=== PATIENT | female | born 1950 | race Caucasian/White ===

== ENCOUNTER 2020-05-06 17:55 | Outpatient (CLI) | payer MEDICARE, SELFPAY ==
--- NOTE | ~2020-05-06 | XR_ITS ---
EXAMINATION: XR heel RT min 2V INDICATION: Right foot pain TECHNIQUE: Two views of the right calcaneus are obtained. COMPARISON: None available FINDINGS: Bone alignment is normal. There is no fracture. The joint spaces are normal. A dorsal calca barry enthesophyte is noted. The soft tissues are unremarkable. IMPRESSION: 1. No acute osseous abnormality. Reviewed, dictated and finalized at location A.
== END 2020-05-06 17:56 | disposition home or self-care (01) ==
PROVIDERS: PCP Internal Medicine; Visit Provider Internal Medicine
DX: M79.671 Pain in right foot (principal)
CPT/HCPCS: 73650

== ENCOUNTER 2021-01-16 09:48 | Outpatient (CLI) | payer BC, SELFPAY ==
--- NOTE | ~2021-01-16 | MM_ITS ---
EXAMINATION: MM screening roxanne BI w leo HISTORY: Screening TECHNIQUE: Craniocaudal and mediolateral oblique 3-D tomosynthesis images were obtained and synthetic 2-D images were generated. CAD analysis was submitted and interpreted. COMPARISON: No prior mammogram is available for comparison at this institution. BREAST PARENCHYMAL COMPOSITION: There are scattered areas of fibroglandular density. FINDINGS: There is no evidence of suspicious mass, calcification, or architectural distortion to sugg est malignancy in either breast. There has been no suspicious interval change. IMPRESSION: 1. No mammographic evidence of malignancy. 2. Recommend routine screening mammography in one year. BI-RADS Category 1: Negative Reviewed, dictated and finalized at location A.
--- NOTE | ~2021-01-16 | DEXA_ITS ---
Bone Density Report Name: Priscila Chua Age: 70 Sex: Female Ethnicity: White Date of : 1950 Indication: postmenopausal; height loss; asthma or emphysema; Referring Provider: Ro Dodge Study: Bone densitometry was performed. Exam Date: January 16, 2021 Accession number: [id number] Bone Density: Region BMD T-score Z-score Classification AP Spine (L1-L4) 0.818 -2.1 -0.1 Osteopenia Femoral Neck (Left) 0.682 -1.5 0.2 Osteopenia Total Hip (Left) 0.797 -1.2 0.2 Osteopenia Total Hip Bilateral Avg 0.799 -1.2 0.3 Osteopenia Femoral Neck (Right) 0.649 -1.8 -0.1 Osteopenia Total Hip (Right) 0.799 -1.2 0.3 Osteopenia World Health Organization criteria for BMD impression classify patients as: Normal (T-score at or above -1.0), Osteopenia (T-score between -1.0 and -2.5), or Osteoporosis (T-score at or below -2.5). 10-year Fracture Risk(1): Major Osteoporotic Fracture 9.8% Hip Fracture 1.6% Reported Risk Factors: [place] (), Neck BMD=0.649, BMI=22.6 (1) FRAX(R) Version 3.08. Fracture probability calculated for an untreated patient. Fracture probability may be lower if the patient has received treatment. Clinical Information Provided by Patient: Has used the following medications: Vitamin D, Calcium Has the following medical conditions: Asthma or Emphysema Patient maximum height was 59.5 Menopause Age: 56 Drinks caffeinated beverages Onset of menses at age 16 Number of children 1 Impression: The patient has low bone mass, based on the Total Spine T-score. The patient has an estimated ten-year risk of hip fracture of 1.6% and an estimated ten-year risk of major fracture of 9.8%, based on the WHO FRAX algorithm. Discussion: BONE DENSITY IS LOW AT ONE OR MORE SKELETAL SITES. This patient's lowest T-score is low at one or more skeletal sites. It meets the World Health Organization's (WHO) criteria for ?low bone mass? (T-score between -1.0 and -2.5). The patient's 10-year risk of fracture as calculated by FRAX is less than the threshold where pharmacological therapy is recommended by the National Osteoporosis Foundation (NOF). However, all treatment decisions require clinical judgment and consideration of individual patient factors, including patient preferences, comorbidities, previous drug use, risk factors not captured in the FRAX model (e.g., frailty, falls, vitamin D deficiency, increased bone turnover, interval significant decline in bone density) and possible under or overestimation of fracture risk by FRAX. The patient should follow a healthful lifestyle (good nutrition with adequate calcium and vitamin D, and appropriate weight-bearing exercise). Follow-Up: Consider repeating this study in 2 to 3 years to reassess this patient's status, or sooner if there is some new clinical indication.
== END 2021-01-16 09:49 | disposition home or self-care (01) ==
LOC: ANHIMG 09:50
PROVIDERS: PCP Internal Medicine; Visit Provider Nurse Practitioner
DX: Z12.31 Encounter for screening mammogram for malignant neoplasm of breast (principal); Z78.0 Asymptomatic menopausal state; M85.88 Other specified disorders of bone density and structure, other site; M85.852 Other specified disorders of bone density and structure, left thigh; M85.851 Other specified disorders of bone density and structure, right thigh
CPT/HCPCS: 77063; 77067; 77080

== ENCOUNTER 2021-02-09 00:05 | Day surgery (SDC) | payer BC, SELFPAY ==
[2021-01-20 08:42] VITALS: BMI 21.9
[2021-02-09] MEDS: LACTATED RINGERS 1,000 ML 150 ML IV CONT (06:31)
[2021-02-09 06:33] VITALS: BP 126/70; PULSE 70; RESP 16; TEMP 36.1; O2SAT 97; BMI 21.2
--- NOTE | 2021-02-09 07:16 | WPDANESEPPF ---
Anes - Initial Pre Proc Eval Procedure: Operation Date: 02/09/21 07:30 Proposed Procedures p Screening Colonoscopy - Eron Zapata MD Date/Time: 02/09/21 07:16 Surgeon: Eron Zapata MD Pre Op Diagnosis: neoplasm screening Patient Data Age: 70 Gender: F Height: 1.5 m Weight: 47.8 kg Last Vital Signs Temp 97.0 F L 02/09/21 06:33 Pulse 70 02/09/21 06:33 Resp 16 02/09/21 06:33 BP 126/70 02/09/21 06:33 Pulse Ox 97 02/09/21 06:33 Allergies Allergy/AdvReac Type Severity Reaction Status Date / Time milk Allergy Unknown Unknown Verified 02/09/21 06:20 Home Medications Medication Instructions Recorded Confirmed Type montelukast 10 mg tablet 10 mg PO DAILY #30 tablet 11/20/20 02/09/21 Rx albuterol sulfate 90 mcg/actuation 1 puff INHALATION Q4H PRN 12/10/20 02/09/21 History aerosol inhaler Patient hx anesthesia problems: none Family hx anesthesia problems: none PMFSH Past Medical History Medical History (Updated 12/10/20 @ 09:57 by Ro Dodge NP) Asthma Hepatitis C virus infection resolved after antiviral drug therapy Surgical History Surgical History (Updated 12/10/20 @ 09:21 by Cynthia Woodard CMA) History of cholecystectomy Hx of appendectomy Family History Family History (Updated 12/10/20 @ 09:10 by Cynthia Woodard CMA) Mother Hypertension Family history of elevated blood lipids Father Cancer Mother Cancer Hypertension Heart disease Thyroid disease Sibling Cancer Grandparent Cancer Heart disease Social History Social History (Updated 12/10/20 @ 09:11 by Cynthia Woodard CMA) Smoking packs per day: 0.5 Smoking cigarettes per day: 10.0 Years smoked: 8 Smoking pack-years: 4.00 Smoking status: Former smoker Smoking end date: 08/15/89 Alcohol intake: current Drinks per week: 3 Living arrangements: with family Spiritual care concerns: No Anes - Eval Final PreProcedure Day of Procedure 02/09/21 07:16 Patient weight: normal Heart: regular rate and rhythm Lungs: clear to auscultation Airway: Mallampati scale class II Neurological: alert and oriented Last oral intake: >/= 8 hours ASA classification: II Emergent: no Anesthetic plan: proceed Anesthesia type and monitoring: general GIVS and standard monitoring Informed Consent: The patient's anesthetic plan and its attendant risks and benefits were discussed with the patient/family/POA. Questions were solicited and answers provided to the satisfaction of the patient/family/POA.
--- NOTE | 2021-02-09 07:23 | PM.HPGS ---
History of Present Illness History of Present Illness Consent: Risks, benefits, and alternatives have been discussed and questions answered. Patient agrees to proceed with procedure. Chief complaint: neoplasm screening Narrative: Priscila Chua is a 70 year old female here for screening colonoscopy, last one more than 10 years ago. Review of Systems Constitutional: Constitutional: Denies headache(s) and Denies weakness Eyes: Eyes: Denies blurry vision ENT: Reports Normal hearing present, Denies headache(s) and Denies neck pain Cardiovascular: Cardiovascular: Denies chest pain and Denies dyspnea Respiratory: Respiratory: Denies dyspnea Gastrointestinal: Gastrointestinal: Reports no additional gastrointestinal complaints Genitourinary: Genitourinary: Denies dysuria Musculoskeletal: Musculoskeletal: Denies neck pain Integumentary/Breasts: Skin/Breast: Denies dry skin Neurologic: Reports Normal hearing present, Denies headache(s) and Denies weakness Psychiatric: Psychiatric: Denies anxiety Endocrine: Endocrine: Denies change in body appearance Hematologic/Lymphatic: Hematologic/Lymphatic: Denies easy bleeding Allergic/Immunologic: Allergic/Immunologic: Denies urticaria PMFSH Past Medical History Medical History (Updated 12/10/20 @ 09:57 by Ro Dodge NP) Asthma Hepatitis C virus infection resolved after antiviral drug therapy Surgical History Surgical History (Updated 12/10/20 @ 09:21 by Cynthia Woodard CMA) History of cholecystectomy Hx of appendectomy Family History Family History (Updated 12/10/20 @ 09:10 by Cynthia Woodard CMA) Mother Hypertension Family history of elevated blood lipids Father Cancer Mother Cancer Hypertension Heart disease Thyroid disease Sibling Cancer Grandparent Cancer Heart disease Social History Social History (Updated 12/10/20 @ 09:11 by Cynthia Woodard CMA) Smoking packs per day: 0.5 Smoking cigarettes per day: 10.0 Years smoked: 8 Smoking pack-years: 4.00 Smoking status: Former smoker Smoking end date: 08/15/89 Alcohol intake: current Drinks per week: 3 Living arrangements: with family Spiritual care concerns: No Meds Home Medications and Allergies Home Medications Medication Instructions Recorded Confirmed Type montelukast 10 mg tablet 10 mg PO DAILY #30 tablet 11/20/20 02/09/21 Rx albuterol sulfate 90 mcg/actuation 1 puff INHALATION Q4H PRN 12/10/20 02/09/21 History aerosol inhaler Allergies Allergy/AdvReac Type Severity Reaction Status Date / Time milk Allergy Unknown Unknown Verified 02/09/21 06:20 Vital Signs Vital Signs - 24 hr 02/09/21 06:33 Temperature 97.0 F L Pulse Rate 70 Respiratory Rate 16 Blood Pressure 126/70 Pulse Oximetry 97 Exam Const: General: comfortable and no acute distress HENMT: General nose exam: Normal nares present Eyes: General: appearance normal, both eyes and all related structures Neck: Neck: no JVD Resp: Auscultation: clear to auscultation bilaterally Cardio: Rate: regular rate Rhythm: regular rhythm GI: Inspection: non-distended GI Palp: Yes Soft to palpation Skin: General skin exam: normal color Neuro: General: gait normal Speech: normal speech Extrem: General: normal to inspection Psych: Mental Status: mental status grossly normal Assessment and Plan Assessment and plan (1) Screening for colon cancer: Code(s): Z12.11 - Encounter for screening for malignant neoplasm of colon Status: Acute Assessment and Plan: colonoscopy
[2021-02-09 07:44] VITALS: BP 96/60; PULSE 79; RESP 16; O2SAT 99
[2021-02-09 07:54] VITALS: BP 118/70; PULSE 79; RESP 16; O2SAT 99
[2021-02-09 08:04] VITALS: BP 123/73; PULSE 73; RESP 16; O2SAT 99
== END 2021-02-09 08:15 | disposition home or self-care (01) ==
PROVIDERS: PCP Internal Medicine; Visit Provider Internal Medicine Gastroenterology
PROC: 0DJD8ZZ Inspection of Lower Intestinal Tract, Via Natural or Artificial Opening Endoscopic (ICD-10-PCS; CPT 45378; principal; 2021-02-09 07:30)
DX: Z12.11 Encounter for screening for malignant neoplasm of colon (principal); K57.30 Diverticulosis of large intestine without perforation or abscess without bleeding; J45.909 Unspecified asthma, uncomplicated; Z86.19 Personal history of other infectious and parasitic diseases; Z87.891 Personal history of nicotine dependence; Z79.4 Long term (current) use of insulin
CPT/HCPCS: 45378; J2704; J7120

== ENCOUNTER → 2021-05-02 10:27 | Outpatient (CLI) | payer BC, SELFPAY ==
--- NOTE | ~2021-05-02 | XR_ITS ---
XR foot LT min 3V DATE: 05/02/2021 11:25 INDICATION: Left foot pain TECHNIQUE: 4 views COMPARISON: None FINDINGS: There is moderate osteopenia. There is mild plantar and posterior calcaneal enthesopathy. There is mild osteoarthritic change at the first metatarsophalangeal joint and interphalangeal joints . No fracture, dislocation, periosteal reaction or bone destruction is detected. 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
== END ==
PROVIDERS: PCP Nurse Practitioner; Visit Provider Nurse Practitioner
DX: M19.072 Primary osteoarthritis, left ankle and foot (principal)
CPT/HCPCS: 73630

== ENCOUNTER → 2023-02-03 10:53 | Outpatient (CLI) | payer BC, SELFPAY ==
--- NOTE | ~2023-02-03 | US_ITS ---
EXAMINATION:US venous doppler LE INDICATION:Calf pain. TECHNIQUE: Multiple grayscale, color flow and Doppler images of the left lower extremity deep venous systems were obtained and reviewed. COMPARISON:No prior studies for comparison. Near area palpable concern in the left calf there is an o karthikeyan circumscribed wider than tall hyperechoic mass measuring 5.7 x 4.6 x 2.3 cm which may represent a typical lymph node or lipoma. No internal vascularity or posterior features. FINDINGS: The common femoral, superficial femoral and popliteal veins demonstrate normal respiratory variation, augmentation and compressibility. Color flow is also seen within the posterior tibial, pe roneal, greater saphenous and profunda veins. IMPRESSION: 1: No lower extremity deep venous thrombosis. 2: Abnormal 5.7 cm mass in the left calf which may represent atypical lymph node or lipoma. Consider percutaneous biopsy as clinically warranted. Reviewed, dictated and finalized at [facility]. IMPRESSION: 1: No lower extremity deep venous thrombosis. 2: Abnormal 5.7 cm mass in the left calf which may represent atypical lymph no de or lipoma. Consider percutaneous biopsy as clinically warranted.
== END ==
PROVIDERS: PCP Nurse Practitioner; Visit Provider Nurse Practitioner
DX: M79.89 Other specified soft tissue disorders (principal)
CPT/HCPCS: 93971

== ENCOUNTER 2023-04-12 12:57 | Outpatient (CLI) | payer BC, SELFPAY ==
--- NOTE | ~2023-04-12 | MR_ITS ---
EXAMINATION: MR lower leg LT wo/w con DATE: 04/12/2023 13:46 INDICATION: Left calf mass and pain with bending the knee. TECHNIQUE: Magnetic resonance imaging (MRI) of the left lower leg was performed without and with 9 mL Multihance intravenous contrast. A marker was placed over the mass. Sequences included axial, sagit randy and coronal T1-weighted FSE and fluid sensitive FSE STIR, axial T1-weighted FS FSE and post contr ast axial, sagittal and coronal T1-weighted FS FSE were also obtained. The contralateral right lower leg is included on the coronal images. COMPARISON: None. FINDINGS: Immediately underlying the marker indicating the mass of concern is a new ovoid 5.6 x 4.5 x 2.4 cm T1 hyperintense fat saturating intramuscular lipoma within the proximal medial head of the gastrocnemiu s muscle no solid nodular enhancing soft tissue component to suggest aggressive lipoma or liposarcoma . No other abnormal masses or abnormally enhancing lesions identified. Partial-thickness cartilage lo ss at the patellofemoral compartment of the left knee with subarticular edema-like signal change at t he patellar apical ridge and adjacent lateral facet suggesting overlying high-grade chondromalacia. T here is otherwise normal bone marrow signal throughout. Remaining joint appear normal. No knee or ank le joint effusions. Remaining musculature of the bilateral calves appears normal and symmetric. IMPRESSION: 1. 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 Reviewed, dictated and finalized at location A.
== END 2023-04-12 12:58 ==
PROVIDERS: PCP Nurse Practitioner; Visit Provider Surgery
DX: M79.662 Pain in left lower leg (principal)
CPT/HCPCS: 73720; A9577

== ENCOUNTER 2023-04-28 08:30 | Outpatient (CLI) | payer BC, SELFPAY ==
--- NOTE | ~2023-04-28 | MM_ITS ---
EXAMINATION: MM screening roxanne BI w leo HISTORY: Screening mammogram, family history of breast cancer in her mother. TECHNIQUE: Craniocaudal and mediolateral oblique 3-D tomosynthesis images were obtained and synthetic 2-D images were generated. CAD analysis was submitted and interpreted. COMPARISON: 01/16/2021 BREAST PARENCHYMAL COMPOSITION:There are scattered areas of fibroglandular density. FINDINGS: No suspicious mass, calcification, or architectural distortion are identified in either naresh ast to suggest malignancy. There has been no suspicious interval change. IMPRESSION: No mammographic evidence of malignancy. Recommend routine screening mammography in one year. BI-RADS Category 1: Negative Reviewed, dictated and finalized at location M.
== END 2023-04-28 08:31 | disposition home or self-care (01) ==
PROVIDERS: PCP Nurse Practitioner; Visit Provider Nurse Practitioner
DX: Z12.31 Encounter for screening mammogram for malignant neoplasm of breast (principal)
CPT/HCPCS: 77063; 77067

== ENCOUNTER 2023-06-20 01:27 | Day surgery (SDC) | payer MEDICARE, SELFPAY ==
[2023-06-15 11:33] VITALS: BMI 21.6
--- NOTE | 2023-06-15 11:42 | PC.NURSE ---
Report to the Outpatient Waiting Room, entrance under the green pavilion located off [facility], at time __0600 on date __06/20/23 . Planned Procedure Time: ___30 . Time changes happen often and if your time is changed the preop area will call you the afternoon before. - You and your visitor will be asked to self-screen and do not enter if you have any COVID symptoms. - A mask is optional within the hospital at this time. Patients may have clear liquids (water, carbonated beverages, clear teas, apple juice) until 3 hours prior to surgery (0430 AM) with a maximum of 20 ounces. - No food from midnight until time of surgery - Infants may have breast milk until 4 hours before surgery, formula 6 hours prior to surgery. - Children will be allowed to drink immediately following surgery. If applicable, please bring a bottle or sippy cup to assist with drinking. Juice, water, soda, and popsicles are readily available. For infants on formula, please bring formula the day of surgery. Pacifiers are allowed. Take the following medications with a SIP of water the morning of surgery: ___INHALER DO NOT STOP ANY OF YOUR OTHER PRESCRIPTION MEDICATIONS PRIOR TO SURGERY ?EXCEPT THE FOLLOWING Medications to discontinue per physician MULTIVITAMIN Date to take last dose__06/16/23 Please no make-up, nail romansh, hairspray, perfume, deodorant, or body powder the day of surgery. No jewelry (including any body piercings) or valuables the day of surgery, leave them at home. Please take a shower or bath the night before, or the morning of, surgery with an antibacterial soap. Wear comfortable, loose fitting clothing. Children are encouraged to wear pajamas. - Jewelry must be removed prior to entering the operating room. Rings and piercings that are not removed may be cut off. - The hospital will not accept responsibility for valuables. - Please leave all valuables, including medications, at home the day of surgery. If you are going home after surgery, a licensed screw driver operator must drive you home. - NO public transportation without another adult if you receive anesthesia. - We recommend that an adult stay with you for 24 hours following discharge. - We also recommend that you do not drive, make important decision, drink alcoholic beverages, or take any drugs that were not prescribed by your health care provider for at least 24 hours after your discharge time. For Pediatric surgeries, we recommend two adults accompany the child home. Follow any additional instructions given to you from your surgeon. If you or anyone in your household have experienced Covid symptoms in the past week, please notify your surgeon or the nurse liaison at the phone number below for possible testing. Telephone instructions given to ___PT and asked if any additional questions and then verbalized understanding. Patient advised to call surgeon office or pre surgery nurse liaison [phone] if any additional questions.
[2023-06-20] VITALS (7 sets, daily range): BP systolic 132–151; BP diastolic 63–79; PULSE 66–110; RESP 12–18; TEMP 36.3–36.6; O2SAT 98–100
[2023-06-20] MEDS: LACTATED RINGERS 1,000 ML 30 ML IV CONT (06:35)
--- NOTE | 2023-06-20 06:55 | WPDANESEPPF ---
Anes - Initial Pre Proc Eval Procedure: Operation Date: 06/20/23 07:30 Proposed Procedures p Excision of Left Calf Intramuscular Mass - Thad Harry MD Date/Time: 06/20/23 06:55 Surgeon: Thad Harry MD Pre Op Diagnosis: Lt Calf Intramuscular Mass 5x5 cm Patient Data Age: 73 Gender: F Height: 1.5 m Weight: 48.63 kg Allergies Allergy/AdvReac Type Severity Reaction Status Date / Time milk Allergy Unknown Unknown Verified 06/20/23 06:54 oxycodone [From Percocet] Allergy Unknown Nausea Verified 06/20/23 06:54 Home Medications Medication Instructions Recorded Confirmed Type albuterol sulfate 90 mcg/actuation 1 puff inhalation Q4H PRN 12/11/21 06/20/23 Rx aerosol inhaler Shortness Of Breath #8.5 grams alendronate 70 mg tablet (Fosamax) 70 mg PO WEEKLY #12 tabs 02/21/23 06/20/23 Rx mometasone 100 mcg/actuation HFA 2 inh inhalation Q12H #3 multiple 02/21/23 06/20/23 Rx aerosol inhaler (Asmanex HFA) units multivitamin 1 tablet PO DAILY 06/15/23 06/20/23 History Patient hx anesthesia problems: none Family hx anesthesia problems: none Results Review: All pre-operative results and documents have been reviewed as part of the pre-operative evaluation. [facility] Past Medical History Medical History Asthma Hepatitis C virus infection resolved after antiviral drug therapy Osteopenia Surgical History Surgical History History of cholecystectomy Hx of appendectomy Family History Family History Mother Hypertension Family history of elevated blood lipids Father Cancer Mother Cancer Hypertension Heart disease Thyroid disease Sibling Cancer Grandparent Cancer Heart disease Social History Social History Smoking packs per day: 0.5 Smoking cigarettes per day: 10.0 Years smoked: 8 Smoking pack-years: 4.00 Smoking status: Former smoker Tobacco type: cigarettes Second hand tobacco smoke exposure: No Smoking end date: 08/15/89 Alcohol intake: current Drinks per week: 4 Substance use: never Substance use type: does not use Lack of Transportation: No Lack of Food: Never True Current Housing: I Have Housing Concerned About Future Housing: No Difficulty Paying Gas/Electric Bills: No Difficulty Paying for Meds: No Currently Unemployed: No Education: Associate Degree Difficulty w/ Childcare or Family Care: No Living arrangements: with family Spiritual care concerns: No Anes - Eval Final PreProcedure Day of Procedure 06/20/23 06:55 Patient weight: normal Heart: regular rate and rhythm Lungs: clear to auscultation Airway: Mallampati scale class II Neurological: alert and oriented Last oral intake: >/= 8 hours ASA classification: II Emergent: no Anesthetic plan: proceed Anesthesia type and monitoring: general ETT and standard monitoring Results Review: All pre-operative results and documents have been reviewed as part of the pre-operative evaluation. Informed Consent: The patient's anesthetic plan and its attendant risks and benefits were discussed with the patient/family/POA. Questions were solicited and answers provided to the satisfaction of the patient/family/POA.
--- NOTE | 2023-06-20 07:16 | PM.IMHP ---
H&P: HPI History of Present Illness Date/Time: 06/20/23 07:16 Chief Complaint: Left leg mass Narrative: Priscila returns for another recheck of a left lower leg mass and to review recent MRI results from 04/12/23. 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 She states she will occasionally have discomfort in her left calf with standing or walking. Review of Systems Review of Systems: The remainder of the review of systems to include constitutional, HEENT, cardiovascular, respiratory, GI, , integumentary, musculoskeletal, endocrine, immunologic, hematologic, psychiatric, and neurologic are all negative except for which is mentioned above in the HPI. [facility] Past Medical History Medical History Asthma Hepatitis C virus infection resolved after antiviral drug therapy Osteopenia Surgical History Surgical History History of cholecystectomy Hx of appendectomy Family History Family History Mother Hypertension Family history of elevated blood lipids Father Cancer Mother Cancer Hypertension Heart disease Thyroid disease Sibling Cancer Grandparent Cancer Heart disease Social History Social History Smoking packs per day: 0.5 Smoking cigarettes per day: 10.0 Years smoked: 8 Smoking pack-years: 4.00 Smoking status: Former smoker Tobacco type: cigarettes Second hand tobacco smoke exposure: No Smoking end date: 08/15/89 Alcohol intake: current Drinks per week: 4 Substance use: never Substance use type: does not use Lack of Transportation: No Lack of Food: Never True Current Housing: I Have Housing Concerned About Future Housing: No Difficulty Paying Gas/Electric Bills: No Difficulty Paying for Meds: No Currently Unemployed: No Education: Associate Degree Difficulty w/ Childcare or Family Care: No Living arrangements: with family Spiritual care concerns: No Meds Home Medications and Allergies Home Medications Medication Instructions Recorded Confirmed Type albuterol sulfate 90 mcg/actuation 1 puff inhalation Q4H PRN 12/11/21 06/20/23 Rx aerosol inhaler Shortness Of Breath #8.5 grams alendronate 70 mg tablet (Fosamax) 70 mg PO WEEKLY #12 tabs 02/21/23 06/20/23 Rx mometasone 100 mcg/actuation HFA 2 inh inhalation Q12H #3 multiple 02/21/23 06/20/23 Rx aerosol inhaler (Asmanex HFA) units multivitamin 1 tablet PO DAILY 06/15/23 06/20/23 History Allergies Allergy/AdvReac Type Severity Reaction Status Date / Time milk Allergy Unknown Unknown Verified 06/20/23 06:54 oxycodone [From Percocet] Allergy Unknown Nausea Verified 06/20/23 06:54 Vital Signs Vital Signs - 24 hr 06/20/23 06:10 Temperature 36.6 C Pulse Rate 66 Respiratory Rate 18 Blood Pressure 151/67 H Pulse Oximetry 99 Oxygen Delivery Room Air Exam Const: General: comfortable and no acute distress Eyes: General: appearance normal, both eyes and all related structures Sclera: sclerae normal Pupils: Equal, round and reactive pupils present Neck: Neck: supple and no JVD Resp: Effort & Inspection: normal respiratory effort Auscultation: clear to auscultation bilaterally Cardio: Rate: regular rate Rhythm: regular rhythm GI: GI Palp: Yes Soft to palpation, No Firmness to palpation present (GI), No Tenderness to palpation present (GI), No Guarding due to palpation present (GI) and No Hernia present Skin: General skin exam: normal color and no rashes or lesions noted Neuro: General: gait normal Speech: normal speech Motor exam (neuro): 5/5 motor strength present throughout Extrem: Other: 5 by 5 cm partially fixed mass mid portion of the posterior left calf. Mass bulges out with dorsiflex of left ara
--- NOTE | 2023-06-20 07:20 | WPDHPUPDATE1 ---
History and Physical Update Update Date/Time: 06/20/23 07:20 History and Physical has been reviewed, including an updated exam of the patient. There are NO changes in the patient's condition. Risks, benefits, and alternatives have been discussed and questions answered. Patient agrees to proceed with procedure.
[2023-06-20] MEDS: ceFAZolin 2 GM/D5W 50 ML 2 GM/50 ML BAG IVPB (07:35)
[2023-06-20] MEDS: LIDO 1%/EPINEPHRINE 1:100,000 50 ML VIAL 30 ML INFILTRATE (08:03)
[2023-06-20] MEDS: KETOROLAC 15 MG/ML VIAL (*BKC) IV PUSH (08:21)
--- NOTE | 2023-06-20 08:53 | P.OP_ITS ---
Procedure Note - Detailed Date of Procedure 06/20/23 Pre-op Diagnosis Lt Calf Intramuscular Mass 5x5 cm Post-op Diagnosis Same Procedure Performed Excision of left posterior calf intramuscular lipoma. Surgeon Thad Harry MD Se[employer] Hosier[employer] Knitter Sheela CLARK student Anesthesia General Indications Patient is a 73 year old female presented with a slowly enlarging mildly sore subcutaneous mass in the midportion of the posterior left calf. Workup with MRI showed this to be consistent with a intramuscular lipoma. She presents now for excision of the mass. Findings 5x5x2.5cm intramuscular lipomatous mass in the belly of the left calf muscle. Well-defined capsule. Description of Procedure After informed consent was obtained patient brought to the operating room she was placed under general endotracheal anesthesia on the gurney then turned into the prone position on the operating table. The area the left posterior calf was then prepped and draped usual sterile fashion. A time-out was then performed correctly identifying the patient as well as procedure to be performed. Site marking was verified she was given perioperative IV antibiotics. 1% lidocaine mixed with 0.5% Marcaine was then injected around the mass for local anesthetic effect. A longitudinal incision with a scalpel then made over the center portion of the mass and dissection carried down through the dermis skin with a scalpel. Electrocautery was then used to dissect down through subcutaneous tissues until I encountered the fascia to the left calf muscle. I then incised the fascia longitudinally with electrocautery to expose the underlying muscle fibers. The intramuscular lipomatous mass was identified and then I shelled out the mass with blunt finger and electrocautery dissection from the surrounding muscle fibers. A small amount of muscle which was densely adherent to the mass was sacrificed in resected. The mass had a well-defined capsule. Once I completely excised out the mass I measured it was 5x5x2.5cm. It was sent to pathology for examination. And irrigated the wound with sterile saline solution hemostasis was then achieved utilizing the cautery. The was then closed utilizing interrupted 2-0 Vicryl sutures to reapproximate the edges of the fascia. Subcutaneous tissues were then closed utilizing interrupted 3-0 Vicryl sutures. The skin edges then approximated utilizing a running subcuticular 4-0 Monocryl suture. The incision was then cleaned and then skin glue was applied. The patient tolerated the procedure well no complications. All sponges, needles, and instrument counts were correct at the end procedure. EBL was _5__cc. The patient was awakened and taken to recovery in stable and satisfactory condition. Implants None Estimated Blood Loss 5 Drains No Packing No Pathology Yes Complications No immediate complications Condition Stable Disposition PACU [facility] Billing Surgery - Charge Forward: Surgery Billing
== END 2023-06-20 10:25 | disposition home or self-care (01) ==
PROVIDERS: PCP Nurse Practitioner; Visit Provider Surgery
PROC: (CPT 27634; principal; 2023-06-20 07:30)
DX: D17.24 Benign lipomatous neoplasm of skin and subcutaneous tissue of left leg (principal); J45.909 Unspecified asthma, uncomplicated; M85.80 Other specified disorders of bone density and structure, unspecified site; Z80.9 Family history of malignant neoplasm, unspecified; Z87.891 Personal history of nicotine dependence; Z79.51 Long term (current) use of inhaled steroids
CPT/HCPCS: 27634; 88304; J0690; J1100; J1885; J2371; J2405; J2704; J3010; J7120

== ENCOUNTER 2024-09-17 09:47 | Outpatient (CLI) | payer BC, SELFPAY ==
--- OUTSIDE RECORDS SUMMARY | 2024-09-17 10:28 | XMS_ITS | Clinical Summary ---
Author Organization [facility] Address [address] [place] [address]. [place], [place] [id number] [place] [address] Care Team Providers Care Medical Education Coordinator Name Role Phone Kelsi Perkins PA-C Primary Care Provider [phone] Encounters Date Type Department Care Team Description 06/18/2024 Telephone [facility] Medical [facility] General Surgery - [address], [address] [place] [address] Choco Alberto MD Other from Last 3 Months Immunizations Name Administration Dates Next Due Influenza (Generic) 05/31/2018 PFIZER COVID-19 (ORIGINAL FO RMULATION, PURPLE CAP) mRNA, LNP-S, PF, 30 MCG/0.3 ML DOSE 07/01/2021 Social History Tobacco Use Types Packs/Day Years Used Date Smoking Tobacco: Never Assessed Comments Unknown Sex and Gender Information Value Date Recorded Sex Assigned at Not on file Legal Sex Female 7:45 PM CDT Gender Identity Not on file Sexual Orientation Not on file Plan of Treatment Health Maintenance Due Date Last Done Comments Colorectal Cancer Screening Colonoscopy (10 Years) 1952 Hepatitis C 1970 DTaP, Tdap and Td Vaccines ( 1 - Tdap) 1971 Mammogram Screening 1992 Zoster Vaccines (1 of 2) 2002 Annual Medicare Wellness Visit 2017 Dexa Scan (General) 2017 Pneumococcal Vaccine: 65+ Years (1 of 1 - PCV) 2017 COVID-19 Vaccine (4 - 2023-2 5 season) 2024 07/01/2021, 08/26/2020, 08/05/2020 Influenza Adult (#1) 2024 05/31/2018 PHQ-2 (Physician [place]) 08/15/2024 RSV Immunization or 60+ Years (1 - 1-dose 75+ series) 2027 Meningococcal B Vaccine Aged Out No l onger eligible based on patient's age to complete this topic Meningococcal Vaccine Aged Out No cj sera eligible based on patient's age to complete this topic RSV Immunizations Under 20 Months Aged Out No longer eligible b ased on patient's age to complete this topic Insurance [facility] Care Teams Medical Education Coordinator Relationship Specialty Start Date End Date Kelsi Perkins PA-C [id number] [facility] [address] [place] [address] PCP - General PHYSICIAN [employer] 04/04/23
[2024-09-17 12:24] LABS: Alanine Aminotransferase 31 U/L (6-35); Alkaline Phosphatase 70 U/L (38-126); Anion Gap 13 mmol/L (4-12); Aspartate Amino Transferase 45 U/L (14-36); Bilirubin,Total 0.7 mg/dL (0.2-1.3); Blood Urea Nitrogen 17 mg/dL (7-17); Calcium 10.3 mg/dL (8.4-10.2); Carbon Dioxide 29 mmol/L (22-30); Chloride 99 mmol/L (98-107); Cholesterol 260 mg/dL (0-200); Estimated Glomerular Filt Rate > 60; Glucose 99 mg/dL (65-110); HDL Direct 77 mg/dL; Potassium 4.6 mmol/L (3.4-5.0); Sodium 141 mmol/L (137-145); Triglycerides 136 mg/dL (<150)
[2024-09-17 12:35] LABS: LDL Cholesterol Direct 143 mg/dL
[2024-09-17 12:36] LABS: Basophils Percent Auto 0.2 % (0.2-1.2); Eosinophils Absolute Auto 0.2 K/mm3 (0-0.3); Eosinophils Percent Auto 2.6 % (0-4.4); Immature Granulocyte Absolute 0.01 K/mm3 (0.00-0.031); Immature Granulocyte Percent A 0.2 % (0-0.5); Lymphocytes Absolute Auto 2.19 K/mm3 (0.9-3.2); Lymphocytes Percent Auto 38.4 % (18.3-44.2); Mean Corpuscular HGB Conc 32.6 g/dl (32-36); Mean Corpuscular Hemoglobin 31.4 pg (26-34); Mean Corpuscular Volume 96.4 fl (80-100); Mean Platelet Volume 9.9 fl (7.4-10.4); Monocytes Absolute Auto 0.4 K/mm3 (0.1-0.6); Monocytes Percent Auto 7.7 % (2.6-8.5); Neutrophils Absolute Auto 2.9 K/mm3 (1.3-6.7); Neutrophils Percent Auto 50.9 % (45.5-73.1); Platelet Count Result 279 k/mm3 (150-375); Red Blood Count 4.77 M/mm3 (4.2-5.4); Red Cell Distribution Width 12.4 % (11.5-14.5); White Blood Count 5.7 K/mm3 (4.5-10.0)
== END 2024-09-17 09:48 | disposition home or self-care (01) ==
LOC: ANHGOSHLAB 09:48
PROVIDERS: PCP Internal Medicine; Visit Provider Nurse Practitioner
DX: Z00.00 Encounter for general adult medical examination without abnormal findings (principal); Z13.220 Encounter for screening for lipoid disorders; E55.9 Vitamin D deficiency, unspecified; Z13.29 Encounter for screening for other suspected endocrine disorder
CPT/HCPCS: 36415; 80053; 80061; 82306; 85025

== ENCOUNTER 2025-04-17 09:32 | Outpatient (CLI) | payer MEDICARE, SELFPAY ==
--- NOTE | ~2025-04-17 | MM_ITS ---
EXAMINATION: MM screening [facility] BI w leo HISTORY: Screening TECHNIQUE: Craniocaudal and mediolateral oblique 3-D tomosynthesis images were obtained and synthetic 2-D images were generated. CAD analysis was submitted and interpreted. COMPARISON: Mammograms from 04/28/2023 and 01/16/2021 BREAST PARENCHYMAL COMPOSITION: There are scattered areas of fibroglandular density. FINDINGS: There is no evidence of suspicious mass, calcification, or architectural distortion in either breast to suggest malignancy. There has been no significant interval change. IMPRESSION: 1. No mammographic evidence of malignancy. Recommend routine screening mammography in one year. BI-RADS Category 1: Negative Reviewed, dictated and finalized at location Q. IMPRESSION: 1. No mammographic evidence of malignancy. Recommend routine screening mammogra phy in one year. BI-RADS Category 1: Negative
== END 2025-04-17 09:33 | disposition home or self-care (01) ==
LOC: ANHFOHIMG 09:33
PROVIDERS: PCP Internal Medicine; Visit Provider Nurse Practitioner
DX: Z12.31 Encounter for screening mammogram for malignant neoplasm of breast (principal)
CPT/HCPCS: 77063; 77067

== ENCOUNTER 2025-05-06 13:26 | Outpatient (CLI) | payer BC, SELFPAY ==
--- NOTE | ~2025-05-06 | DEXA_ITS ---
Bone Density Report Name: CHANTE RICKS Age: 75 Sex: Female Ethnicity: White Date of : 1950 Indication: osteopenia; height loss; asthma or emphysema; Referring Provider: YOANA PERRY Study: Bone densitometry was performed. Exam Date: May 06, 2025 Accession number: [id number] Bone Density: Region BMD T-score Z-score Classification AP Spine(L1-L4) 0.800 -2.2 0.0 Osteopenia Femoral Neck (Left) 0.622 -2.0 -0.1 Osteopenia Total Hip (Left) 0.862 -0.7 1.0 Normal Femoral Neck (Right) 0.637 -1.9 0.1 Osteopenia Total Hip (Right) 0.834 -0.9 0.8 Normal Total Hip Mean 0.848 -0.8 0.9 Normal World Health Organization criteria for BMD impression classify patients as: Normal (T-score at or above -1.0), Osteopenia (T-score between -1.0 and -2.5), or Osteoporosis (T-score at or below -2.5). 10-year Fracture Risk(1): Major Osteoporotic Fracture 12% Hip Fracture 2.9% Reported Risk Factors: [place] (), Neck BMD=0.622, BMI=22.0 (1) FRAX(R) Version 3.08. Fracture probability calculated for an untreated patient. Fracture probability may be lower if the patient has received treatment. Previous Exams: Region Exam Age BMD T-score BMD Change BMD Change Date g/cm2 vs Baseline vs Previous AP Spine (L1-L4) 05/06/2025 75 0.800 -2.2 -0.018 (-2.1%) -0.018 (-2.1%) 01/16/2021 70 0.818 -2.1 Total Hip(Left) 05/06/2025 75 0.862 -0.7 0.066 (8.2%)* 0.066 (8.2%)* 01/16/2021 70 0.797 -1.2 Total Hip(Right) 05/06/2025 75 0.834 -0.9 0.035 (4.4%)* 0.035 (4.4%)* 01/16/2021 70 0.799 -1.2 *Denotes significance at 95% confidence level, LSC for AP Spine = 0.022 g/cm2, LSC for Total Hip = 0.027 g/cm2 Clinical Information Provided by Patient: Has used the following medications: Fosamax (i.e. alendronate), Vitamin D Has the following medical conditions: Asthma or Emphysema Patient maximum height was 60 Menopause Age: 56 Drinks caffeinated beverages Onset of menses at age 16 Number of children 1 Impression: The patient has low bone mass, based on the Total Spine T-score. The patient has an estimated ten-year risk of hip fracture of 2.9% and an estimated ten-year risk of major fracture of 12%, based on the WHO FRAX algorithm. No significant bone loss was observed. Discussion: BONE DENSITY IS LOW AT ONE OR MORE SKELETAL SITES. This patient's lowest T-score is low at one or more skeletal sites. It meets the World Health Organization's (WHO) criteria for ?low bone mass? (T-score between -1.0 and -2.5). The patient's 10-year risk of fracture as calculated by FRAX is less than the threshold where pharmacological therapy is recommended by the National Osteoporosis Foundation (NOF). However, all treatment decisions require clinical judgment and consideration of individual patient factors, including patient preferences, comorbidities, previous drug use, risk factors not captured in the FRAX model (e.g., frailty, falls, vitamin D deficiency, increased bone turnover, interval significant decline in bone density) and possible under or overestimation of fracture risk by FRAX. The patient should follow a healthful lifestyle (good nutrition with adequate calcium and vitamin D, and appropriate weight-bearing exercise). Follow-Up: Consider repeating this study in 2 to 3 years to reassess this patient's status, or sooner if there is some new clinical indication. Reported by: JELENA on 05/06/2025 2:14:00 PM. Reviewed, dictated and finalized at location A.
--- OUTSIDE RECORDS SUMMARY | 2025-05-06 13:54 | XMS_ITS | Clinical Summary ---
Author Organization [facility] Address [address] [place] [address] Care Team Providers Care Dry Cleaning Manager Name Role Phone Nadira Nichols MD Primary Care Provider Allergies Active Allergy Reactions Criticality Noted Date Comments Milk (Cow) Unknown 04/30/2021 Oxycodone Nausea Only 06/25/2021 Medications Albuterol Sulfate 108 (90 Base) MCG/ACT AEROSOL POWDER, BREATH ACTIVATED Active albuterol sulfate HFA 108 (90 Base) MCG/ACT inhaler INHALE 1 PUFF BY MOUTH EVERY 4 HOURS NEEDED FOR SHORTNESS OF BREATH Active Active Problems Problem Noted Date Diagnosed Date Actinic keratosis 04/30/2025 Uncomplicated asthma (HHS/HCC) 04/30/2025 Exposure to COVID-19 virus 04/30/2025 Hepatitis C virus infection resolved after antiviral drug therapy 04/30/2025 Left foot pain 04/30/2025 Malaise and fatigue 04/30/2025 Osteopenia 04/30/2025 Postmenopausal 04/30/2025 Seasonal allergic rhinitis due to pollen 025 Suspicious nevus 04/30/2025 Resolved Problems Problem Noted Date Diagnosed Date Resolved Date Skin cancer screening 04/30/20252024 Encounters Date Type Department Care Team Description 05/01/2025 MyChart Message Enc [facility] Family & Internal Medicine [facility] [id number] [place] [phone] Viki Victor APRN Foot fracture 04/30/2025 8:15 AM CDT - 04/30/2025 11:59 PM CDT Hospital Encounter [facility] [address] [place] [address] Viki Victor APRN Discharge Disposition: Home or Self Care (Routine Discharge) 04/30/2025 7:40 AM CDT Office Visit [facility] [id number] [place] [phone] Viki Victor APRN Ankle/foot Pain (Rolled left ankle and bruising. X 1 day) 04/30/2025 Orders Only [facility] [address] [phone] Viki Victor APRN 04/30/2025 Results Follow-Up [facility] [address] [place] [phone] Viki Victor APRN XR FOOT LT 3V, XR ANKLE LT M3V 04/30/2025 Travel from Last 3 Months Immunizations Immunization Administration Dates Next Due Influenza (Generic) 05/31/2018 PFIZER COVID-19 (ORIGINAL FO RMULATION, PURPLE CAP) mRNA, LNP-S, PF, 30 MCG/0.3 ML DOSE 07/01/2021 Family History Medical History Relation Comments Colon Cancer Father Breast Cancer Mother Colon Cancer Mother Leukemia Mother Relation Status Comments Father Mother Social History Tobacco Use Types Packs/Day Years Used Date Smoking Tobacco: Former Cigarettes Smokeless Tobacco: Never Tobacco Cessation:Counseling Given: Yes Alcohol Use Standard Drinks/Week Comments Yes 0 (1 standard drink = 0.6 oz pur e alcohol) Comments No Sex and Gender Information Value Date Recorded Sex Assigned at Not on file Legal Sex Female 7:45 PM CDT Gender Identity Not on file Sexual Orientation Not on file Last Filed Vital Signs Vital Sign Reading Time Taken Comments Blood Pressure 162/90 04/30/2025 7:39 AM CDT Pulse 64 04/30/2025 7:39 AM CDT Temperature 36.9 C (98.5 F) 04/30/2025 7:39 AM CDT Respiratory Rate 16 04/30/2025 7:39 AM CDT Oxygen Saturation 97% 04/30/2025 7:39 AM CDT Inhaled Oxygen Concentration - - Weight 48.1 kg (106 lb) 04/30/2025 7:39 AM CDT Height 150.5 cm (4' 11.25) 04/30/2025 7:39 AM C DT Body Mass Index 21.23 04/30/2025 7:39 AM CDT Plan of Treatment Upcoming Encounters Date Type Department Care Team (Late st Contact Info) Description 05/15/2025 9:45 AM CDT Appointment [facility] ORTHOPEDIC SURGERY AND FOOT AND ANKLE SPECIALIST - [place] [address] [place] [address] [place] [address] [place] [address] 05/15/2025 10:00 AM CDT Office Visit [facility] [address] [place] [address] [place] [address] [place] [address] Health Maintenance Due Date Last Done Comments Colorectal Cancer Screening Colonoscopy (10 Years) 1952 Hepatitis C 1970 DTaP, Tdap and Td Vaccines ( 1 - Tdap) 1971 Pneumococcal Vaccine: 50+ Years (1 of 2 - PCV) 1971 Mammogram Screening 1992 Zoster Vaccines (1 of 2) 2002 RSV Immunization or 60+ Years (1 - Risk 60-74 years 1-dose series) 2012 Annual Medicare Wellness Visit 2017 Dexa Scan (General) 2017 PHQ-2 (Physician [place]) 08/15/2024 COVID-19 Vaccine (4 - 2024-2 6 season) 2025 07/01/2021, 08/26/2020, 08/05/2020 Meningococcal B Vaccine Aged Out No l onger eligible based on patient's age to complete this topic Meningococcal Vaccine Aged Out No cj sera eligible based on patient's age to complete this topic RSV Immunizations Under 20 Months Aged Out No longer eligible b ased on patient's age to complete this topic Procedures Procedure Name Priority Date/Time Associated Diagnosis Comments XR ANKLE LT M3V STAT 04/30/2025 8:39 AM CDT Acute left ankle pain XR FOOT LT 3V STAT 04/30/2025 8:39 AM CDT Left foot pain from Last 3 Months Results * XR FOOT LT 3V (04/30/2025 8:39 AM CDT) Anatomical Region Laterality Modality Foot Radiographic Berna ging 04/30/2025 8:45 AM CDT Impressions 04/30/2025 8:47 AM CDT IMPRESSION: Incomplete nondisplaced fracture of the fifth metatarsal base. Ordered By: VIKI VICTOR Interpreted By: Yoshi Hart MD, 04/30/2025 8:45 AM Narrative 04/30/2025 8:47 AM CDT [address] [place] [address] XR FOOT LT 3V, XR ANKLE LT M3V INDICATION: twisting injury, painful, bruising on left foot. TECHNIQUE: AP lateral and oblique views of the left ankle left foot. COMPARISON: None FINDINGS: There is an incomplete fracture identified of the fifth metatarsal base with transverse lucency involving the lateral cortex. No other convincing fracture is identified. Ankle mortise is maintained. Bipartite medial hallux sesamoid. No significant ankle joint effusion. Mild calcaneal Achilles and plantar spurring. No aggressive osseous lesion. No radiopaque foreign body. Procedure Note Yoshi Hart MD - 04/30/2025 [facility] [id number] [place] [address]. [place] [id number] XR FOOT LT 3V, XR ANKLE LT M3V INDICATION: twisting injury, painful, bruising on left foot. TECHNIQUE: AP lateral and oblique views of the left ankle left foot. COMPARISON: None FINDINGS: There is an incomplete fracture identified of the fifth metatarsal basewith transverse lucency involving the lateral cortex. No other convincingfracture is identified. Ankle mortise is maintained. Bipartite medialhallux sesamoid. No significant ankle joint effusion. Mild calcanealAchilles and plantar spurring. No aggressive osseous lesion. No radiopaqueforeign body. IMPRESSION: Incomplete nondisplaced fracture of the fifth metatarsal base. Ordered By: VIKI VICTOR Interpreted By: Yoshi Hart MD, 04/30/2025 8:45 AM us Viki Victor RACE ENGINE BUILDER GENERAL IMAGING Final Resu lt * XR ANKLE LT M3V (04/30/2025 8:39 AM CDT) Anatomical Region Laterality Modality Ankle Radiographic Berna ging 04/30/2025 8:45 AM CDT Impressions 04/30/2025 8:47 AM CDT IMPRESSION: Incomplete nondisplaced fracture of the fifth metatarsal base. Ordered By: VIKI VICTOR Interpreted By: Yoshi Hart MD, 04/30/2025 8:45 AM Narrative 04/30/2025 8:47 AM CDT [address] [place] [address] XR FOOT LT 3V, XR ANKLE LT M3V INDICATION: twisting injury, painful, bruising on left foot. TECHNIQUE: AP lateral and oblique views of the left ankle left foot. COMPARISON: None FINDINGS: There is an incomplete fracture identified of the fifth metatarsal base with transverse lucency involving the lateral cortex. No other convincing fracture is identified. Ankle mortise is maintained. Bipartite medial hallux sesamoid. No significant ankle joint effusion. Mild calcaneal Achilles and plantar spurring. No aggressive osseous lesion. No radiopaque foreign body. Procedure Note Yoshi Hart MD - 04/30/[address] [place] [address] XR FOOT LT 3V, XR ANKLE LT M3V INDICATION: twisting injury, painful, bruising on left foot. TECHNIQUE: AP lateral and oblique views of the left ankle left foot. COMPARISON: None FINDINGS: There is an incomplete fracture identified of the fifth metatarsal basewith transverse lucency involving the lateral cortex. No other convincingfracture is identified. Ankle mortise is maintained. Bipartite medialhallux sesamoid. No significant ankle joint effusion. Mild calcanealAchilles and plantar spurring. No aggressive osseous lesion. No radiopaqueforeign body. IMPRESSION: Incomplete nondisplaced fracture of the fifth metatarsal base. Ordered By: VIKI VICTOR Interpreted By: Yoshi Hart MD, 04/30/2025 8:45 AM Viki Victor RACE ENGINE BUILDER GENERAL IMAGING Final Resu lt from Last 3 Months Insurance [facility] [place] [id number] Care Teams Dry Cleaning Manager Relationship Specialty [place] [address] [place] [address] PCP - General INTERNAL MEDICINE 11/08/24
== END 2025-05-06 13:27 | disposition home or self-care (01) ==
PROVIDERS: PCP Internal Medicine; Visit Provider Nurse Practitioner
DX: Z78.0 Asymptomatic menopausal state (principal); M85.88 Other specified disorders of bone density and structure, other site; M85.852 Other specified disorders of bone density and structure, left thigh; M85.851 Other specified disorders of bone density and structure, right thigh
CPT/HCPCS: 77080